=== PATIENT | male | born 1955 | race Caucasian/White ===

== ENCOUNTER 2016-10-06 21:01 | Emergency (ER) | payer MEDICARE ==
[2016-10-06 22:04] LABS: HEMOGLOBIN 12.4 gm/dl (14.0-17.5); RED BLOOD COUNT 4.08 M/UL (4.20-5.50); WHITE BLOOD COUNT 5.1 K/UL (4.5-11.0)
[2016-10-06 22:23] LABS: BUN/CREATININE RATIO 24 (0-10)
== END 2016-10-07 00:55 | disposition home or self-care (01) ==
LOC: ER1 21:01
PROVIDERS: Emergency Medicine
DX: S22.32XA Fracture of one rib, left side, initial encounter for closed fracture (principal); S09.90XA Unspecified injury of head, initial encounter; E11.65 Type 2 diabetes mellitus with hyperglycemia; Z88.5 Allergy status to narcotic agent; Z79.84 Long term (current) use of oral hypoglycemic drugs; Z79.4 Long term (current) use of insulin; W18.30XA Fall on same level, unspecified, initial encounter
CPT/HCPCS: 36415; 70450; 71260; 80053; 82962; 84484; 85025; 96374; 96375; 99284; J1815; J2270; J2405; J7030; J7050; Q9962